=== PATIENT | female | born 1995 | race Caucasian/White ===

== ENCOUNTER 2022-03-24 13:46 | Observation (INO) | payer MEDICAID ==
[2022-03-24] VITALS (9 sets, daily range): BP systolic 108–132; BP diastolic 66–82
[~2022-03-24] VITALS: Ht 149.4 cm; Wt 74.3 kg
[2022-03-24] MEDS ORDERED: NS 100 ML (IVPB) BAG IV ONE (14:30)
[2022-03-24] MEDS ORDERED: IOHEXOL 350 MG/ML 100 ML (OMNIPAQUE 350) VIAL IV ONE (14:30)
[2022-03-24] MEDS ORDERED: HOLD METFORMIN - RECEIVED CONTRAST 20 ML VIAL IV SCH (14:30)
[2022-03-24] MEDS ORDERED: ACETAMINOPHEN 500 MG TAB (TYLENOL) PO PRN (14:30)
[2022-03-24 14:58] LABS: BASOPHILS # (AUTO) 0.1 10^3/uL (0.0-0.1); BASOPHILS % (AUTO) 0 % (0-10); EOSINOPHILS % (AUTO) 0 % (0-10); HEMATOCRIT 40 % (35-52); LYMPHOCYTES # (AUTO) 1.4 10^3/uL (1.0-4.0); LYMPHOCYTES % (AUTO) 5 % (12-44); MEAN CORPUSCULAR HEMOGLOBIN 31 pg (25-34); MEAN CORPUSCULAR HGB CONC 35 g/dL (32-36); MEAN CORPUSCULAR VOLUME 88 fL (80-99); MEAN PLATELET VOLUME 11.3 fL (9.0-12.2); MONOCYTES # (AUTO) 2.8 10^3/uL (0.0-1.0); MONOCYTES % (AUTO) 10 % (0-12); NEUTROPHILS % (AUTO) 84 % (42-75); PLATELET COUNT 302 10^3/uL (130-400); WHITE BLOOD COUNT 28.5 10^3/uL (4.3-11.0)
[2022-03-24 15:03] LABS: POTASSIUM 3.2 MMOL/L (3.6-5.0)
[2022-03-24 15:08] LABS: CREATININE SERUM 0.79 MG/DL (0.60-1.30)
[2022-03-24] MEDS: CEFUROXIME 1,500 MG/NS 50 ML IVPB IV SCH ×4 (15:21→23:41)
[2022-03-24] MEDS: NS IV 1000 ML 1,000 ML IV SCH (15:21)
[2022-03-24] MEDS ORDERED: fentaNYL INJ 100 MCG/2 ML AMP IVP ONE (15:30)
[2022-03-24] MEDS ORDERED: LACTATED RINGERS 1,000 ML IV PRN ×2 (15:30→16:00)
[2022-03-24] MEDS ORDERED: morphine INJ 10 MG/ML 1ML (SYR OR VIAL) IVP ONE (15:30)
[2022-03-24] MEDS ORDERED: MEPERIDINE (DEMEROL) INJ 50 MG/ML IVP ONE (15:30)
[2022-03-24] MEDS ORDERED: ONDANSETRON 4 MG/2 ML (SDV) Z0FRAN IVP PRN (15:30)
[2022-03-24 15:34] LABS: LYMPHOCYTES % (MANUAL) 6 %; MICROCYTOSIS SLIGHT; MONOCYTES % (MANUAL) 10 %; NEUTROPHILS % (MANUAL) 84 %
--- NOTE | 2022-03-24 16:18 | Diagnostic Imaging Report ---
CLINICAL INDICATIONS: Patient with left peritonsillar abscess. EXAM: Axial CT scan of the neck soft tissue performed with 75 mL of Omnipaque 350 IV contrast. Sagittal and coronal reformatted images are created. Auto Exposure Controls were utilized during the CT exam to meet ALARA standards for radiation dose reduction. COMPARISON: None. FINDINGS: There is enlargement of the left palatine tonsil with mucosal thickening and enhancement. There is a rim-enhancing fluid collection in the left peritonsillar region which measures 1.8 cm x 2.5 cm x 3.7 cm (AP x Trans x CC) cyst with abscess. There is mild to moderate narrowing of the oropharynx. There is mild prominence of the left posterior nasopharynx. There is a prominent left level 2A region which measures 1.5 cm x 1.8 cm, likely reactive. Visualized portions of lower cavity, tongue, sublingual and submandibular regions show no significant abnormality. Salivary glands unremarkable. The vascular structures show no significant abnormality. Limited visualization intracranial structures are unremarkable. Paranasal sinuses and mastoid air cells are clear. Visualized upper lung green are clear. There is straightening of the cervical spine posture. IMPRESSION: 1: There is left palatine tonsillitis with peritonsillar abscess. There is mild to moderate narrowing of the oropharynx. 2: There is reactive cervical lymphadenopathy. Dictated by: Dictated on workstation # [id number]
--- NOTE | 2022-03-24 20:21 | Progress Note-Pre Operative ---
Pre-Operative Progress Note Date of Available H&P: Mar 24, 2022 Date H&P Reviewed: Mar 24, 2022 Time H&P Reviewed: 20:00 History & Physical: H&P Reviewed, Patient Examed, No changes noted Changes from last HP none Pre-Operative Diagnosis: left peritonsillar abscess MILAGROS MORALEZ MD Mar 24, 2022 20:21
--- NOTE | 2022-03-24 20:22 | Progress Note-Post Operative ---
Post-Operative Progess Note Surgeon (s)/Textile Designer (s) Surgeon MILAGROS MORALEZ MD Textile Designer n/a Pre-Operative Diagnosis left peritonsillar abscess Post-Operative Diagnosis same Post-Op Procedure Note Date of Procedure: Mar 24, 2022 Name of Procedure Performed: Incision/Drainage Left Peritonsillar Abscess Description & Findings Description and Findings: n/a Anesthesia Type get Estimated Blood Loss minimal Packing none. Specimen(s) collected/removed none MILAGROS MORALEZ MD Mar 24, 2022 20:22
[2022-03-24] MEDS ORDERED: HYDROcodone/APAP 7.5MG-325 MG/15 ML (LORTAB) UDC PO PRN (20:30)
[2022-03-24] MEDS ORDERED: LIDOCAINE/EPI 2% 1:200,00 (XYLOCAINE) 20 ML VIAL ONE (20:38)
[2022-03-24] MEDS ORDERED: LIDOCAINE PF 2% 5 ML (XYLOCAINE) VIAL ONE (20:47)
[2022-03-24] MEDS ORDERED: proPOfol 200 MG/20 ML (DIPRIVAN) VIAL IV ONE (20:47)
[2022-03-24] MEDS ORDERED: SEVOFLURANE (ULTANE) 15 ML INHAL SOLN ONE (20:47)
[2022-03-24] MEDS ORDERED: ONDANSETRON 4 MG/2 ML (SDV) Z0FRAN ONE (20:47)
[2022-03-24] MEDS ORDERED: MIDAZOLAM 2 MG/2 ML (VERSED) VIAL ONE (20:48)
[2022-03-24] MEDS ORDERED: fentaNYL INJ 100 MCG/2 ML AMP ONE (20:48)
[2022-03-24] MEDS ORDERED: SUCCINYLCHOLINE INJ 100 MG/5 ML SYR/VIAL ONE (21:03)
[2022-03-25] VITALS (7 sets, daily range): BP systolic 100–125; BP diastolic 56–73
[2022-03-25] MEDS: NS IV 1000 ML 1,000 ML IV SCH (03:50)
[2022-03-25] MEDS: CEFUROXIME 1,500 MG/NS 50 ML IVPB IV SCH ×6 (04:51→21:46)
[2022-03-25 06:08] LABS: BASOPHILS % (AUTO) 0 % (0-10); EOSINOPHILS % (AUTO) 0 % (0-10); HEMATOCRIT 38 % (35-52); HEMOGLOBIN 12.9 g/dL (11.5-16.0); LYMPHOCYTES # (AUTO) 1.1 10^3/uL (1.0-4.0); LYMPHOCYTES % (AUTO) 4 % (12-44); MEAN CORPUSCULAR HEMOGLOBIN 31 pg (25-34); MEAN CORPUSCULAR HGB CONC 34 g/dL (32-36); MEAN CORPUSCULAR VOLUME 91 fL (80-99); MEAN PLATELET VOLUME 11.3 fL (9.0-12.2); MONOCYTES # (AUTO) 0.8 10^3/uL (0.0-1.0); MONOCYTES % (AUTO) 3 % (0-12); NEUTROPHILS # (AUTO) 25.9 10^3/uL (1.8-7.8); NEUTROPHILS % (AUTO) 93 % (42-75); PLATELET COUNT 264 10^3/uL (130-400); WHITE BLOOD COUNT 27.9 10^3/uL (4.3-11.0)
--- NOTE | 2022-03-25 06:58 | Progress Note ---
Standard Progress Note Progress Notes/Assess & Plan Date Seen by a Provider: Mar 25, 2022 Time Seen by a Provider: 06:00 Progress/Assessment & Plan ENT-Christos Doing much better able to talk and drink liquids less pressure/pain OP-swollen left pharynx-much better than lat pm prior to drianage IMP: will cont IV antibiotics and steroids for 24 more hours if wbc is down and doing welll will discharge tomorrow after breakfast diet as david Final Diagnosis Left Peritonsillar ABscess MILAGROS MORALEZ MD Mar 25, 2022 06:58
--- NOTE | 2022-03-25 07:56 | Anesthesia-General Post-Op ---
General Patient Condition Mental Status/LOC: Same as Preop Cardiovascular: Satisfactory Nausea/Vomiting: Absent Respiratory: Satisfactory Pain: Controlled Complications: Absent Post Op Complications Complications None Follow Up Care/Instructions Patient Instructions None needed. Anesthesia/Patient Condition Patient Condition Patient is doing well, no complaints, stable vital signs, no apparent adverse anesthesia problems. No complications reported per nursing. MALIA EDUARDO CRNA Mar 25, 2022 07:56
[2022-03-26 03:52] VITALS: BP 89/56
[2022-03-26 04:43] VITALS: BP 95/58
[2022-03-26] MEDS: CEFUROXIME 1,500 MG/NS 50 ML IVPB IV SCH ×2 (05:22)
[2022-03-26 05:53] VITALS: BP 104/60
--- NOTE | 2022-03-26 06:52 | Progress Note ---
Standard Progress Note Progress Notes/Assess & Plan Date Seen by a Provider: Mar 26, 2022 Time Seen by a Provider: 06:00 Progress/Assessment & Plan ENT-Christos Doing much better able to talk and drink liquids less pressure/pain OP-swollen left pharynx-much better than lat pm prior to drianage IMP: will cont IV antibiotics and steroids for 24 more hours if wbc is down and doing welll will discharge tomorrow after breakfast diet as david ENT-Christos-03/26 clinically symptoms have resolved no pain-david diet well OP-minimal swelling of left tonsil-no exudate seen incision healing well neck-no pain or swelling imp-left peritonsilar abscess rec-will discharge after breakfast dischrage prescriptions in chart rtc-2 weeks Final Diagnosis left peritonsillar abscess MILAGROS MORALEZ MD Mar 26, 2022 06:52
[2022-03-26 08:05] VITALS: BP 119/67
[2022-03-26 09:40] VITALS: BP 119/67
== END 2022-03-26 07:55 | disposition home or self-care (01) ==
LOC: 4TH 13:46 → UNDOADMOB 13:46 → SDC 13:46 → 4TH 22:24 → UNDODISOB 03-26 09:40 → EDSTATUS 03-26 16:33
PROVIDERS: ADMIT Otolaryngology Otolaryngology/Facial Plastic Surgery; ATTEND Otolaryngology Otolaryngology/Facial Plastic Surgery
DX: J36 Peritonsillar abscess (principal)
CPT/HCPCS: 36415; 70491; 80048; 84703; 85007; 85025; 85027; 87081; 96366; 96374; 96375; 96376; G0378